=== PATIENT | female | born 1995 | race African-American/Black ===

== ENCOUNTER 2018-03-05 11:51 | Emergency (ER) | payer OTHER ==
[2018-03-05 11:56] VITALS: BMI 28.2
--- NOTE | 2018-03-05 12:36 | PDOC ---
History of Present Illness - General Chief Complaint: Vaginal Bleeding Stated Complaint: VAGINAL BLEED (7WKS ) Time Seen by Provider: 03/05/18 12:30 - History of Present Illness Initial Comments: 03/05/18 12:56 The patient is a 22 year female 7 weeks who presents for evaluation of vaginal bleeding and cramping. The patient reports that her LMP was 01/13/18. She reports onset of vaginal bleeding today with associated lower abdominal cramping prompting her presentation to the ED for further evaluation. She reports some associated nausea, but otherwise denies fevers, chills, SOB, chest pain, vomiting or changes with urination or bowel movements. Past History - Past Medical History Allergies/Adverse Reactions: Allergies Allergy/AdvReac Type Severity Reaction Status Date / Time No Known Allergies Allergy Verified 03/05/18 11:53 Home Medications: Ambulatory Orders NK [No Known Home Medication] 03/05/18 COPD: No - Suicide/Smoking/Psychosocial Hx Smoking History: Never smoked Review of Systems - Review of Systems Comments:: 03/05/18 13:00 Constitutional: No fevers, chills, fatigue, malaise HEENT: No Rhinorrhea, nasal congestion, visual changes Cardiovascular: No chest pain, syncope, palpitations, lightheadedness Respiratory: No Cough, SOB, Hemoptysis, Gastrointestinal: Lower abdominal cramping, nausea. No Vomiting, Constipation, Diarrhea, Melena Genitourinary: Vaginal bleeding. No Dysuria, Frequency, Urgency, Hesitancy, Hematuria, Flank pain Musculoskeletal: No Myalgia, arthralgia Skin: No rashes, itching, bruising, pallor Neurologic: No Headache, Dizziness, Numbness, Weakness, or Tingling Psychiatric: No Hallucinations. No SI or HI *Physical Exam - Vital Signs Last Vital Signs Temp Pulse Resp BP Pulse Ox 97.7 F 83 16 118/60 99 03/05/18 11:53 03/05/18 11:53 03/05/18 11:53 03/05/18 11:53 03/05/18 11:53 - Physical Exam Comments: 03/05/18 13:01 General Appearance: Nourished. No Apparent Distress HEENT: No Pharyngeal Erythema, Tonsillar Exudate, Tonsillar Erythema Neck: No Cervical Lymphadenopathy Respiratory/Chest: Lungs Clear, Normal Breath Sounds. No Crackles, Rales, Rhonchi, Wheezing Cardiovascular: Regular Rhythm, Regular Rate. No Murmur, Gallops, Rubs Gastrointestinal/Abdominal: Normal Bowel Sounds, Soft. Mild lower abdominal discomfort with palpation. No Guarding, Rebound, Pelvic Exam: Patient Refused. Musculoskeletal: No CVA Tenderness Extremity: Normal Capillary Refill Integumentary: Normal Color, Dry, Warm Neurologic: Fully Oriented, Alert, Normal Mood/Affect, Normal Response, ED Treatment Course - LABORATORY CBC & Chemistry Diagram: 03/05/18 13:10 03/05/18 13:10 Medical Decision Making - Medical Decision Making 03/05/18 13:01 The patient is a 22 year female 7 weeks who presents for evaluation of vaginal bleeding and cramping. Differential includes but is not limited to: Threatened , Spontaneous , UTI, Infectious, Metabolic Derangement. Given the patient's history and physical exam, we will obtain a cbc, cmp, coags, type and screen, ua, urine culture and transvaginal US to evaluate further. We will treat with patient with iv fluids, tylenol and zofran and continue to monitor and reassess while here in the ED. 03/05/18 15:57 CBC, cmp, coags, ua are unremarkable. Transvaginal US demonstrates intrauterine at 6 weeks 3 days with a heart rate and a small subchorionic hemorrhage as read by our radiologist. The patient is RH positive. We are comfortable discharging the patient home with [facility] follow up. WE discussed the results, plan, and return precautions with the patient who voiced understanding and is agreeable with the plan. *DC/Admit/Observation/Transfer Diagnosis at time of Disposition: Vaginal bleeding affecting early - Discharge Dispostion Disposition: HOME Condition at time of disposition: Stable Decision to Admit order: No - Referrals Referrals: Mariela Win MD [Staff Physician] - - Patient Instructions Printed Discharge Instructions: DI for Vaginal Bleeding During Additional Instructions: Please return to the ER if you experience concerning or worsening symptoms including worsening difficulty breathing, weakness, or chest pain, abdominal pain, vaginal bleeding. Your lab results were normal here in the ER. Your US results show a healthy with a small bleed that you will need to follow up with your OB. Please call to schedule a follow up appointment with your [facility] specialist within 2-3 days to discuss your ER visit and further management of your symptoms. - Post Discharge Activity
[2018-03-05] MEDS ORDERED: SODIUM CHLORIDE 1,000 ML IV STA (12:46)
[2018-03-05] MEDS ORDERED: ONDANSETRON 4 MG/2 ML VIAL IVPUSH ONE (12:46)
[2018-03-05] MEDS ORDERED: ACETAMINOPHEN 1000 MG/100 ML VIAL (NON FORMULARY) IVPB ONE (12:46)
[2018-03-05 13:20] LABS: BASO % 0.5 % (0-2.0); EOS % 1.5 % (0-4.5); HEMOGLOBIN 12.4 GM/dL (10.7-15.3); LYMPH % 34.2 % (8-40); MCHC 33.4 g/dl (32.0-36.0); MEAN CELL VOLUME 80.9 fl (80-96); MEAN PLT VOLUME 7.4 fl (7.5-11.1); MONO % 12.9 % (3.8-10.2); NEUT % 50.9 % (42.8-82.8); PLATELET COUNT 274 K/MM3 (134-434); RBC 4.58 M/mm3 (3.60-5.2); RDW 14.9 % (11.6-15.6); WHITE BLOOD COUNT 5.2 K/mm3 (4.0-10.0)
--- NOTE | 2018-03-05 13:23 | PDOC ---
Attending Attestation - HPI HPI: 03/05/18 14:06 The patient is a 22 year female, , approx 7 weeks (LMP 01/13/18), with no other significant medical history who presents for evaluation of vaginal bleeding and cramping today. The patient reports her LMP was 01/13/18. She reports associated lower abdominal cramping and nausea prompting her presentation to the ED for further evaluation. The patient denies chest pain, shortness of breath, headache and dizziness. The patient denies fever, chills, vomit, diarrhea and constipation. The patient denies dysuria, frequency, urgency and hematuria. Allergies: NKDA - Physicial Exam PE: 03/05/18 14:07 Vitals: Triage vital signs reviewed General Appearance: No acute distress, well nourished, well developed Head: Atraumatic Eyes: Pupils equal reactive round, extraocular movement intact Neck: Supple; No nuchal rigidity Chest Wall: Nontender Cardiac: Regular rate and rhythm, no murmurs, no rubs, no gallops Lungs: Clear to auscultation bilateral, good air movement bilaterally Abdomen: (+) mild left abdominal tednerness on palpation. Soft, nondistended, normal bowel sounds, Extremities: Full range of motion to all extremities, no cyanosis, clubbing, or edema Skin: Warm and dry, no rashes or lesions, no rash, no petechiae Neuro: AOX3; Cranial Nerves 2-12 grossly intact, Strength intact to all extremities, Sensation intact to all extremities, gait normal Psych: Normal mood, normal affect - Medical Decision Making 03/05/18 14:07 Documentation prepared by Davina Morgan, acting as medical staff credentialing coordinator for Speedy Vance MD <Davina Morgan - Last Filed: 03/05/18 16:05> - Resident Resident Name: Stefan Mathews - ED Attending Attestation I have performed the following: I have examined & evaluated the patient, The case was reviewed & discussed with the resident, I agree w/resident's findings & plan, Exceptions are as noted - Medical Decision Making 7 weeks positive IUP on ultrasound Rh+ History and examination consistent with threatened miscarriage Findings discussed with patient patient advised to follow-up with [facility] this week. Findings, need for follow-up, strict return instructions discussed with patient. <Speedy Vance - Last Filed: 03/05/18 16:09>
[2018-03-05] MEDS ORDERED: ONDANSETRON 4 MG/2 ML VIAL ONE (13:24)
[2018-03-05] MEDS ORDERED: ACETAMINOPHEN INJECTION 100 ML IVPB ONE (13:24)
[2018-03-05 13:42] LABS: INR 1.12 (0.83-1.09); PROTHROMBIN TIME (PATIENT) 13.2 SEC (9.7-13.0)
[2018-03-05 13:44] LABS: ACTIVATED PTT 32.7 SECONDS (25.2-36.5)
[2018-03-05 13:49] LABS: ALBUMIN 3.6 g/dl (3.4-5.0); ALK PHOS 51 U/L (45-117); ANION GAP 6 MMOL/L (8-16); BILIRUBIN,TOTAL 0.5 mg/dL (0.2-1); BLOOD UREA NITROGEN 7 mg/dL (7-18); CALCIUM 8.7 mg/dL (8.5-10.1); CHLORIDE 104 mmol/L (98-107); CO2 27 mmol/L (21-32); CREATININE 0.7 mg/dL (0.55-1.3); GLUCOSE,RANDOM 80 mg/dL (74-106); POTASSIUM 4.1 mmol/L (3.5-5.1); SGOT/AST 15 U/L (15-37); SGPT/ALT 16 U/L (13-61); SODIUM 137 mmol/L (136-145); TOT PROT 7.4 g/dl (6.4-8.2)
[2018-03-05 13:54] LABS: HCG,QUALITATIVE URINE Positive
[2018-03-05 13:57] LABS: URINE APPEARANCE CLEAR; URINE BILIRUBIN NEGATIVE (<2.0 mg/dL); URINE COLOR LTYELLOW; URINE GLUCOSE (UA) NEGATIVE (NEGATIVE); URINE KETONE NEGATIVE (NEGATIVE); URINE LEUK ESTERASE 1+ (NEGATIVE); URINE NITRITE NEGATIVE (NEGATIVE); URINE PROTEIN NEGATIVE (NEGATIVE); URINE UROBILINOGEN NEGATIVE mg/dL (0.2-1.0)
[2018-03-05 14:32] LABS: EPI CELLS RARE /HPF (FEW); URINE BACTERIA RARE /hpf (NONE SEEN); URINE MUCUS FEW
[2018-03-05 15:35] VITALS: BP 105/51; PULSE 62; TEMP 97.6
== END 2018-03-05 16:44 | disposition home or self-care (01) ==
LOC: JER 11:51
PROC: 3E033GC Introduction of Other Therapeutic Substance into Peripheral Vein, Percutaneous Approach (ICD-10-PCS; principal; 2018-03-05)
PROC: 3E033NZ Introduction of Analgesics, Hypnotics, Sedatives into Peripheral Vein, Percutaneous Approach (ICD-10-PCS; 2018-03-05)
DX: O26.891 Other specified pregnancy related conditions, first trimester (principal); O20.8 Other hemorrhage in early pregnancy; Z3A.01 Less than 8 weeks gestation of pregnancy
CPT/HCPCS: 36415; 76830-TC; 80053; 81003; 81015; 84702; 84703; 85025; 85610; 85730; 86850; 86900; 86901; 87077; 87086; 96374; 96375; 99284-25; J0131; J7030

== ENCOUNTER 2022-10-17 21:11 | Emergency (ER) | payer OTHER ==
[2022-10-17 21:17] VITALS: BP 106/65; PULSE 73; RESP 16; TEMP 98; BMI 40.3
[2022-10-17] MEDS ORDERED: FAMOTIDINE 20 MG TABLET PO ONE (21:59)
[2022-10-17] MEDS ORDERED: MAG HYDROX/AL HYDROX/SIMETH 30 ML UNIT-DOSE CUP PO ONE (21:59)
[2022-10-17] MEDS ORDERED: PANTOPRAZOLE 40 MG TABLET PO ONE ×2 (21:59→22:05)
[2022-10-17] MEDS ORDERED: FAMOTIDINE 20 MG TABLET ONE (22:03)
[2022-10-17] MEDS ORDERED: MAG HYDROX/AL HYDROX/SIMETH 30 ML UNIT-DOSE CUP ONE (22:03)
[2022-10-17 22:07] LABS: EPI CELLS >36 /uL (0-25.1); HYALINE CASTS 1 /uL (0-3.1); PH,URINE >= 9.0 (5.0-8.0); URINE APPEARANCE CLEAR; URINE BACTERIA >9,000 /uL (0-1359); URINE BILIRUBIN NEGATIVE (NEGATIVE); URINE COLOR YELLOW; URINE GLUCOSE (UA) NEGATIVE (NEGATIVE); URINE KETONE TRACE (NEGATIVE); URINE LEUK ESTERASE 2+ (NEGATIVE); URINE NITRITE NEGATIVE (NEGATIVE); URINE PROTEIN 1+ (NEGATIVE); URINE RBC 12 /uL (0-23.9); URINE WBC 150 /uL (0-25.8)
[2022-10-17] MEDS ORDERED: CEPHALEXIN 250 MG/5 ML ORAL SUSPENSION PO ONE (22:41)
[2022-10-17] MEDS ORDERED: CEPHALEXIN MONOHYDRATE 500 MG CAPSULE (UD) ONE (22:42)
[2022-10-17] MEDS ORDERED: CEPHALEXIN MONOHYDRATE 500 MG CAPSULE (UD) PO ONE (22:44)
== END 2022-10-17 22:59 | disposition home or self-care (01) ==
LOC: JERFT 21:11
DX: K21.00 Gastro-esophageal reflux disease with esophagitis, without bleeding (principal); N30.00 Acute cystitis without hematuria
CPT/HCPCS: 81003; 84703; 87086; 87186; 99283-25

== ENCOUNTER 2023-12-08 13:55 | Inpatient (IN) | payer OTHER ==
[2023-12-08] MEDS ORDERED: ELECTROLYTE-148 SOLN 1,000 ML IV SCH (14:30)
[2023-12-08] MEDS: ELECTROLYTE-148 SOLN 1,000 ML IV SCH (15:00)
[2023-12-08] MEDS ORDERED: OXYTOCIN 30 UNITS in 0.9% NS 30 UNIT/500 ML INFUS.BAG IVPB ONE (15:03)
[2023-12-08] MEDS: OXYTOCIN 30 UNITS in 0.9% NS 30 UNIT/500 ML INFUS.BAG IVPB SCH (15:10)
[2023-12-08 15:31] LABS: BASO % 0.3 % (0-2.0); HEMATOCRIT 32.4 % (32.4-45.2); HEMOGLOBIN 11.1 GM/dL (10.7-15.3); LYMPH % 25.9 % (8-40); MCH 25.4 pg (25.7-33.7); MCHC 34.3 g/dl (32.0-36.0); MEAN PLT VOLUME 7.8 fl (7.5-11.1); MONO % 12.2 % (3.8-10.2); NEUT % 60.6 % (42.8-82.8); PLATELET COUNT 329 10^3/uL (134-434); RBC 4.37 M/mm3 (3.60-5.2); RDW 16.1 % (11.6-15.6); WHITE BLOOD COUNT 7.6 K/mm3 (4.0-10.0)
[2023-12-08 15:40] LABS: INR 0.95 (0.83-1.09); PROTHROMBIN TIME (PATIENT) 10.7 SEC (9.7-13.0)
[2023-12-08 15:43] LABS: ACTIVATED PTT 28.6 SECONDS (25.2-36.5)
[2023-12-08 15:57] LABS: POTASSIUM 4.1 mmol/L (3.5-5.1)
[2023-12-08 15:59] LABS: BLOOD UREA NITROGEN 7.4 mg/dL (7-18); CALCIUM 9.2 mg/dL (8.5-10.1)
[2023-12-08 16:04] LABS: CREATININE 0.8 mg/dL (0.55-1.3)
[2023-12-08 16:07] VITALS: BMI 45.7
[2023-12-08 16:18] VITALS: RESP 18
[2023-12-08 16:53] LABS: HIV INTERPRETATION NEGATIVE (NEGATIVE)
[2023-12-08] MEDS ORDERED: FENTANYL/BUPIVACAINE/NS/PF - PCEA - 50 ML DISP.SYRIN EP ONE (19:17)
[2023-12-08] MEDS ORDERED: FENTANYL CITRATE/PF 50 MCG/ML VIAL ONE (19:18)
[2023-12-08] MEDS ORDERED: BUPIVACAINE HCL/PF 0.25% (2.5MG/ML) 10 ML VIAL ONE (19:18)
[2023-12-08] MEDS: FENTANYL/BUPIVACAINE/NS/PF - PCEA - 50 ML DISP.SYRIN EP SCH (19:30)
[2023-12-08] MEDS ORDERED: NALOXONE HCL 0.4 MG/ML VIAL IVPUSH PRN (19:38)
[2023-12-08] MEDS ORDERED: OXYTOCIN 20 UNITS in 0.9% NS 20 UNIT/1,000 ML INFUS.BAG IV ONE (20:15)
[2023-12-08] MEDS ORDERED: LIDOCAINE HCL 1% PRESERVATIVE FREE - 30ML VIAL ONE (20:16)
[2023-12-08] MEDS: OXYTOCIN 20 UNITS in 0.9% NS 20 UNIT/1,000 ML INFUS.BAG IV SCH (20:30)
[2023-12-08] MEDS ORDERED: BENZOCAINE 28 GM HEMORRHOIDAL OINTMENT TP PRN (21:08)
[2023-12-08] MEDS ORDERED: METHYLERGONOVINE MALEATE 0.2 MG/1 ML AMP IM PRN (21:08)
[2023-12-08] MEDS ORDERED: BISACODYL 10 MG SUPP.RECT RC PRN (21:08)
[2023-12-08] MEDS ORDERED: WITCH HAZEL 50% (TUCKS) 40 PAD/JAR PAD TP PRN (21:08)
[2023-12-09] MEDS: IBUPROFEN 600 MG TABLET (FP) PO PRN (04:30)
[2023-12-09] MEDS: ACETAMINOPHEN 325 MG TABLET (FP) PO PRN (06:36)
[2023-12-09] MEDS: BENZOCAINE 20% 57 GM BOTTLE TP PRN (06:37)
[2023-12-09 06:52] LABS: BASO % 0.1 % (0-2.0); EOS % 0.7 % (0-4.5); HEMATOCRIT 29.2 % (32.4-45.2); HEMOGLOBIN 9.9 GM/dL (10.7-15.3); LYMPH % 16.6 % (8-40); MCH 25.3 pg (25.7-33.7); MCHC 33.9 g/dl (32.0-36.0); MEAN CELL VOLUME 74.7 fl (80-96); MEAN PLT VOLUME 7.7 fl (7.5-11.1); MONO % 12.3 % (3.8-10.2); NEUT % 70.3 % (42.8-82.8); PLATELET COUNT 289 10^3/uL (134-434); RDW 16.4 % (11.6-15.6); WHITE BLOOD COUNT 11.4 K/mm3 (4.0-10.0)
[2023-12-09] MEDS: PRENATAL VITAMINS W/ FOLIC ACID TABLET (FP) PO SCH (09:37)
[2023-12-09] MEDS: SENNOSIDES/DOCUSATE COMBO (SENNA PLUS) TABLET (UD) PO PRN (20:48)
[2023-12-10 10:00] VITALS: BP 107/68; PULSE 87; TEMP 98.3
== END 2023-12-10 14:45 | disposition home or self-care (01) | DRG 807 ==
LOC: JLDR 13:55 → J3W 23:00
PROVIDERS: ADMIT Obstetrics & Gynecology; ATTEND Obstetrics & Gynecology
PROC: 10E0XZZ Delivery of Products of Conception, External Approach (ICD-10-PCS; principal; 2023-12-08)
DX: O80 Encounter for full-term uncomplicated delivery (principal); Z37.0 Single live birth; Z3A.38 38 weeks gestation of pregnancy
CPT/HCPCS: 36415; 59409; 80048; 85025; 85610; 85730; 86780; 86850; 86900; 86901; 87389